=== PATIENT | male | born 1990 | race Caucasian/White ===

== ENCOUNTER 2018-08-18 13:05 | Emergency (ER) | payer OTHER ==
[~2018-08-18] VITALS: Ht 198.1 cm; Wt 81.7 kg
[~2018-08-18 13:05] MED LIST: PERCOCET 5-3251 EACH PO
[2018-08-18] MEDS ORDERED: DIPHENHIST50 MG PO (13:16)
[2018-08-18] MEDS ORDERED: NORCO 5-325 TA1 EACH PO (14:44)
[2018-08-18 14:57] VITALS: BP 143/56
== END 2018-08-18 14:59 | disposition home or self-care (01) ==
LOC: M.ERS 13:05
DX: S62.394A Other fracture of fourth metacarpal bone, right hand, initial encounter for closed fracture (principal); W22.09XA Striking against other stationary object, initial encounter; Y93.89 Activity, other specified; Y92.89 Other specified places as the place of occurrence of the external cause; Y99.8 Other external cause status